=== PATIENT | male | born 1995 | race Caucasian/White ===

== ENCOUNTER 2020-11-03 03:18 | Emergency (ER) | payer BC, SELFPAY | END 2020-11-03 07:14 | disposition home or self-care (01) | LOC: ERS 03:18 | DX: S02.2XXA Fracture of nasal bones, initial encounter for closed fracture (principal); S00.83XA Contusion of other part of head, initial encounter; Y09 Assault by unspecified means | CPT/HCPCS: 12013; 70450; 70486; 72125 ==